=== PATIENT | male | born 1995 | race Two or more races ===

== ENCOUNTER 2017-10-08 06:25 | Emergency (ER) | payer MEDICAID ==
[~2017-10-08] VITALS: Ht 177.8 cm; Wt 72.6 kg
[2017-10-08] MEDS ORDERED: ONDANSETRON HCL/PF 4 MG/2 ML VIAL IV ONE (07:00)
[2017-10-08] MEDS ORDERED: IBUPROFEN 600 MG TABLET PO ONE ×2 (07:00→07:14)
[2017-10-08] MEDS ORDERED: IV NS 0.9% 1,000 ML BAG IV ONE (07:00)
--- NOTE | 2017-10-08 07:13 | NUR ---
PT BIB MOTHER WITH A C/O WITNESSED SYNCOPAL EPISODE, N/V X3 DAYS. FEVER. PT IS ON THE MONITOR AND CONTINUOUS PULSE OX. 18G IV STARTED IN LAC. BLOOD DRAWN AND SENT TO LAB.
[2017-10-08 07:14] LABS: BASOPHILS # (AUTO) 0.1 /CMM (0.0-0.2); BASOPHILS % (AUTO) 0.5 % (0.0-2.0); EOSINOPHILS % (AUTO) 0.4 % (0.0-6.0); HEMATOCRIT 43 % (39-51); HEMOGLOBIN 15.1 g/dL (13.5-17.5); LYMPHOCYTES # (AUTO) 1.2 /CMM (0.8-4.8); MEAN CORPUSCULAR HEMOGLOBIN 31 PG (26.0-33.0); MEAN CORPUSCULAR HGB CONC 35 g/dl (31.0-36.0); MEAN CORPUSCULAR VOLUME 89 fL (80-96); MONOCYTES # (AUTO) 0.7 /CMM (0.1-1.30); MONOCYTES % (AUTO) 7.3 % (2.0-12.0); NEUTROPHILS # (AUTO) 8.2 /CMM (1.8-8.9); NEUTROPHILS % (AUTO) 79.8 % (43.0-81.0); PLATELET COUNT (AUTO) 142 /CMM (150-450); RDW COEFFICIENT OF VARIATION 11.5 (11.5-15.0); RED BLOOD CELL COUNT(AUTO) 4.83 MIL/uL (4.5-6.0); WHITE BLOOD COUNT (AUTO) 10.2 K/uL (4.3-11.0)
[2017-10-08] MEDS ORDERED: ONDANSETRON HCL/PF 4 MG/2 ML VIAL ONE (07:14)
--- NOTE | 2017-10-08 07:15 | NUR ---
REPORT GIVEN TO FIDEL COLON FOR TEMI.
--- NOTE | 2017-10-08 07:16 | NUR ---
RECEIVED REPORT FOR TEMI. PATIENT STABLE.
--- NOTE | 2017-10-08 07:20 | NUR ---
PATIENT MEDICATED PER MD ORDERS.
[2017-10-08 07:30] LABS: CALCIUM, SERUM 8.3 mg/dL (8.5-10.1); CREATININE 1.2 mg/dL (0.6-1.3); POTASSIUM 3.5 mmol/L (3.5-5.1)
--- NOTE | 2017-10-08 08:25 | NUR ---
Ashley correa in ED - 10/08/17 at 0825 by NORMA URINE OBTAINED AND SENT TO LAB .
[2017-10-08 08:57] VITALS: BP 118/66
--- NOTE | 2017-10-08 08:58 | NUR ---
IV removed. Catheter intact and site benign. Pressure and 4x4 applied to site. No bleeding noted. Patient discharged to home in stable condition. Written and verbal after care instructions given. Patient verbalizes understanding of instruction.
== END 2017-10-08 08:58 | disposition home or self-care (01) ==
LOC: ER 06:31
DX: J02.9 Acute pharyngitis, unspecified (principal); R55 Syncope and collapse; R11.2 Nausea with vomiting, unspecified; E86.0 Dehydration; R04.0 Epistaxis
CPT/HCPCS: 36415; 71010; 80048; 85025; 87804; 93005; 96361; 96374; 99285; A4606; J2405; J7030; Z7610; 87400

== ENCOUNTER 2018-10-17 12:23 | Emergency (ER) | payer MEDICAID ==
[~2018-10-17] VITALS: Ht 177.8 cm; Wt 74.8 kg
[2018-10-17 12:39] VITALS: BP 140/76
== END 2018-10-17 13:30 | disposition home or self-care (01) ==
LOC: ER 12:27
DX: R07.89 Other chest pain (principal)
CPT/HCPCS: 71045; 99283; A4606; Z7610